=== PATIENT | male | born 1960 | race Caucasian/White ===

== ENCOUNTER 2018-11-19 18:21 | Inpatient (IN) | payer MEDICARE, OTHER ==
--- NOTE | 2018-11-19 20:25 | ED Physician Chart ---
ED Chief Complaint/HPI - Patient Information Date Seen:: 11/19/18 Time Seen:: 20:25 Chief Complaint:: Generalized weakness History of Present Illness:: 58 yo male with history of hypertension and psychosis, was brought from a [facility] facility for evaluation of generalized weakness and urinary incontinence. Patient was a SNF resident prior to living at the [facility] requiring assist with ADLs. Allergies:: Allergies Allergy/AdvReac Type Severity Reaction Status Date / Time No Known Allergies Allergy Verified 11/19/18 19:41 Vitals:: Vital Signs - 8 hr 11/19/18 19:25 Temp 97.8 F HR 67 RR 18 BP 122/74 O2 Sat % 99 ED Review of Systems - Review of Systems General/Constitutional: No fever, Weakness Skin: No rash Head: No headache Eyes: No pain ENT: No nasal drainage Neck: No neck pain Cardio Vascular: No chest pain Pulmonary: No SOB GI: No nausea, No vomiting Musculoskeletal: No bone or joint pain Psychiatric: Prior psych history Hematopoietic: No bruising Neurological: No syncope, Weakness ED Past Medical History - Past Medical History Past Medical History: HTN Social History: Non Smoker, No Alcohol, No Drug Use Psychiatricy History: Other (Psychosis) Family Medical History - Family Member Mother History Unknown: Yes Ethnicity: Unknown Living Status: Unknown Hx Family Cancer: No Hx Family Coronary Artery Disease: No Hx Family Congestive Heart Failure: No Hx Family Hypertension: No Hx Family Stroke: No Hx Family Diabetes: No Hx Family Seizures: No Hx Family Dementia: No Hx Family AIDS: No Hx Family HIV: No Hx Family COPD: No Hx Family Hepatitis: No Hx Family Psychiatric Problems: No Hx Family Tuberculosis: No ED Physical Exam - Physical Examination General/Constitutional: Awake Head: Atraumatic Eyes: PERRL, EOMI Skin: No ecchymosis ENMT: Nasal exam nl Neck: No nuchal rigidity Respiratory: Clear to Auscultation Cardio Vascular: RRR, No murmur, gallop, rubs, NL S1 S2 GI: No tenderness/rebounding/guarding Extremities: No tenderness or effusion, Full ROM, normal strength in all extremities, No edema, Normal digits & nails Other Neuro/Psych comments:: A & O to self and place ED Labs/Radiology/EKG Results - Lab Results Results: Laboratory Last Values WBC 6.2 Th/cmm (4.8-10.8) 11/20/18 05:45 RBC 3.76 Mil/cmm (4.30-5.70) L 11/20/18 05:45 Hgb 12.0 gm/dL (12-16) 11/20/18 05:45 Hct 35.3 % (41.0-60) L 11/20/18 05:45 MCV 94.0 fl (80-99) 11/20/18 05:45 MCH 31.9 pg (26.0-30.0) H 11/20/18 05:45 MCHC Differential 34.0 pg (28.0-36.0) 11/20/18 05:45 RDW 14.3 % (11.5-20.0) 11/20/18 05:45 Plt Count 167 Th/cmm (150-400) 11/20/18 05:45 MPV 7.9 fl 11/20/18 05:45 Add Manual Diff YES 11/20/18 05:45 Neutrophils % 40.4 % (40.0-80.0) 11/19/18 20:34 Band Neutrophils % 0 % (0-10) 11/20/18 05:45 Lymphocytes % 44.2 % (20.0-50.0) 11/19/18 20:34 Monocytes % 11.4 % (2.0-10.0) H 11/19/18 20:34 Eosinophils % 3.5 % (0.0-5.0) 11/19/18 20:34 Basophils % 0.5 % (0.0-2.0) 11/19/18 20:34 Neutrophils (Manual) 34 % (40-80) L 11/20/18 05:45 Lymphocytes 48 % (20-50) 11/20/18 05:45 Monocytes 10 % (2-10) 11/20/18 05:45 Eosinophils 3 % (0-5) 11/20/18 05:45 Basophils 0 % (0-3) 11/20/18 05:45 Atypical Lymphocytes 5 % 11/20/18 05:45 Sodium 143 mEq/L (136-145) 11/20/18 05:45 Potassium 3.6 mEq/L (3.5-5.1) 11/20/18 05:45 Chloride 110 mEq/L (98-107) H 11/20/18 05:45 Carbon Dioxide 28.6 mEq/L (21.0-31.0) 11/20/18 05:45 Anion Gap 8.0 (7.0-16.0) 11/20/18 05:45 BUN 16 mg/dL (7-25) 11/20/18 05:45 Creatinine 0.7 mg/dL (0.7-1.3) 11/20/18 05:45 Est GFR ( Amer) > 60.0 ml/min (>90) 11/20/18 05:45 Est GFR (Non-Af Amer) > 60.0 ml/min 11/20/18 05:45 BUN/Creatinine Ratio 22.9 11/20/18 05:45 Glucose 111 mg/dL (70-105) H 11/20/18 05:45 Calcium 8.6 mg/dL (8.6-10.3) 11/20/18 05:45 Total Bilirubin 0.3 mg/dL (0.3-1.0) 11/20/18 05:45 AST 14 U/L (13-39) 11/20/18 05:45 ALT 10 U/L (7-52) 11/20/18 05:45 Alkaline Phosphatase 57 U/L (34-104) 11/20/18 05:45 Troponin I 0.01 ng/mL (0.01-0.05) 11/19/18 20:34 B-Natriuretic Peptide 12.4 pg/mL (5.0-100.0) 11/19/18 20:34 Total Protein 5.2 gm/dL (6.0-8.3) L 11/20/18 05:45 Albumin 2.8 gm/dL (4.2-5.5) L 11/20/18 05:45 Globulin 2.4 gm/dL 11/20/18 05:45 Albumin/Globulin Ratio 1.2 (1.0-1.8) 11/20/18 05:45 Triglycerides 71 mg/dL (<150) 11/20/18 05:45 Cholesterol 89 mg/dL (<200) 11/20/18 05:45 LDL Cholesterol Direct 55 mg/dL (75-193) L 11/20/18 05:45 HDL Cholesterol 26 mg/dL (23-92) 11/20/18 05:45 TSH 4.62 uIU/ml (0.34-5.60) 11/20/18 05:45 - Radiology Results Results: CXR: no focal consolidation ED Assessment - Assessment General Assessment: Generalized weakness Psychosis Hypertension, controlled Assessment/Comments:: CBC, CMP, Trop, BNP, TSH UA, urine drug screen CXR, EKG ED Septic Shock - . Is Septic Shock (SBP<90, OR Lactate>4 mmol\L) present?: No - <6hrs of presentation: Vital Signs: Vital Signs - 8 hr 11/19/18 19:25 Temp 97.8 F HR 67 RR 18 BP 122/74 O2 Sat % 99 ED Reassessment (Disposition) - Reassessment Reassessment:: Patient requires further evaluation of generalized weakness and placement planning after discharge. Reassessment Condition:: Unchanged - Patient Disposition Discharge/Transfer:: Acute Care w/in this hosp Admitting Medical Physician:: Georgia Mott
[2018-11-19 20:56] LABS: % BASOPHILS 0.5 % (0.0-2.0); % EOSINOPHILS 3.5 % (0.0-5.0); % LYMPHOCYTES 44.2 % (20.0-50.0); % MONOCYTES 11.4 % (2.0-10.0); % NEUTROPHILS 40.4 % (40.0-80.0); EOSINOPHILE ABSOLUTE 0.3 Th/cmm (0.1-0.4); HEMATOCRIT 39.7 % (41.0-60); HEMOGLOBIN 13.2 gm/dL (12-16); LYMPHOCYTE ABSOLUTE 3.9 Th/cmm (1.5-3.0); MEAN CELL VOLUME 94.6 fl (80-99); MEAN CORPUSCULAR HEMOGLOBIN 31.5 pg (26.0-30.0); MEAN CORPUSCULAR HGB CONC 33.3 pg (28.0-36.0); MEAN PLATELET VOLUME 7.9 fl; NEUTROPHILE ABSOLUTE 3.5 Th/cmm (1.8-8.0); PLATELET COUNT 188 Th/cmm (150-400); RED CELL DISTRIBUTION WIDTH 14.2 % (11.5-20.0); WHITE BLOOD COUNT 8.7 Th/cmm (4.8-10.8)
[2018-11-19 21:13] LABS: ALB/GLOB RATIO 1.2 (1.0-1.8); ALBUMIN 3.4 gm/dL (4.2-5.5); ALKALINE PHOSPHATASE 76 U/L (34-104); ANION GAP 11.6 (7.0-16.0); BILIRUBIN,TOTAL 0.3 mg/dL (0.3-1.0); BUN - UREA NITROGEN 19 mg/dL (7-25); CALCIUM SERUM 8.9 mg/dL (8.6-10.3); CARBON DIOXIDE 25.2 mEq/L (21.0-31.0); CHLORIDE 107 mEq/L (98-107); CREATININE - SERUM 0.7 mg/dL (0.7-1.3); GFR AFRICAN-AMERICAN > 60.0 ml/min (>90); GFR NON AFRICAN-AMERICAN > 60.0 ml/min; GLUCOSE 136 mg/dL (70-105); POTASSIUM SERUM 3.8 mEq/L (3.5-5.1); SGOT 17 U/L (13-39); SGPT/ALT 13 U/L (7-52); SODIUM SERUM 140 mEq/L (136-145); TOTAL PROTEIN,SERUM 6.3 gm/dL (6.0-8.3)
[2018-11-19 23:35] VITALS: BP 116/67
[2018-11-19] MEDS ORDERED: Pneumococcal Vaccine 0.5 mL Vial IM ONE (23:51)
[2018-11-20] MEDS: D5-0.45NS 1,000 ML IV SCH ×2 (00:28→13:02)
[2018-11-20 06:48] LABS: HEMATOCRIT 35.3 % (41.0-60); MEAN CORPUSCULAR HEMOGLOBIN 31.9 pg (26.0-30.0); MEAN PLATELET VOLUME 7.9 fl; PLATELET COUNT 167 Th/cmm (150-400); RED BLOOD COUNT 3.76 Mil/cmm (4.30-5.70); RED CELL DISTRIBUTION WIDTH 14.3 % (11.5-20.0); WHITE BLOOD COUNT 6.2 Th/cmm (4.8-10.8)
[2018-11-20 07:15] LABS: ALB/GLOB RATIO 1.2 (1.0-1.8); ALBUMIN 2.8 gm/dL (4.2-5.5); ALKALINE PHOSPHATASE 57 U/L (34-104); BILIRUBIN,TOTAL 0.3 mg/dL (0.3-1.0); BUN - UREA NITROGEN 16 mg/dL (7-25); CALCIUM SERUM 8.6 mg/dL (8.6-10.3); CARBON DIOXIDE 28.6 mEq/L (21.0-31.0); CHLORIDE 110 mEq/L (98-107); CHOLESTEROL 89 mg/dL (<200); CREATININE - SERUM 0.7 mg/dL (0.7-1.3); GFR AFRICAN-AMERICAN > 60.0 ml/min (>90); GFR NON AFRICAN-AMERICAN > 60.0 ml/min; GLUCOSE 111 mg/dL (70-105); HDL -HIGH DENSITY LIPOPROTEIN 26 mg/dL (23-92); POTASSIUM SERUM 3.6 mEq/L (3.5-5.1); SGOT 14 U/L (13-39); SGPT/ALT 10 U/L (7-52); SODIUM SERUM 143 mEq/L (136-145); TOTAL PROTEIN,SERUM 5.2 gm/dL (6.0-8.3); TRIGLYCERIDES 71 mg/dL (<150)
[2018-11-20 07:19] LABS: ATYPICAL LYMPH 5 %; BAND NEUTROPHILE 0 % (0-10); BASOPHIL 0 % (0-3); EOSINOPHIL 3 % (0-5); LYMPHOCYTE 48 % (20-50); MONOCYTE 10 % (2-10); NEUTROPHILS 34 % (40-80)
--- NOTE | 2018-11-20 08:37 | Diagnostic Imaging Report ---
CHEST X-RAY: AP view INDICATION: Shortness of breath COMPARISON: None FINDINGS: Suboptimal lung volumes are seen with slight increased interstitial lung markings. There is no focal consolidation or pleural effusions The heart is normal in size. The osseous structures demonstrate no acute abnormalities. IMPRESSION: Suboptimal lung volume with slight increased nonspecific interstitial lung markings. No focal consolidation or evidence of katy CHF.
[2018-11-20 12:10] LABS: URINE SOURCE MIDSTREAM
[2018-11-20 12:19] LABS: URINE BILIRUBIN NEGATIVE (NEGATIVE); URINE BLOOD NEGATIVE (NEGATIVE); URINE GLUCOSE (UA) NEGATIVE (NEGATIVE); URINE KETONE NEGATIVE (NEGATIVE); URINE LEUKOCYTE ESTERASE NEGATIVE (NEGATIVE); URINE NITRATE NEGATIVE (NEGATIVE); URINE PROTEIN NEGATIVE (NEGATIVE); URINE UROBILINOGEN 0.2 E.U./dL (0.2 - 1.0)
[2018-11-20 12:22] LABS: URINE COLOR DARK YELLOW
[2018-11-20 12:28] LABS: AMPHETAMINE URINE NEGATIVE (NEGATIVE); BARBITURATES URINE NEGATIVE (NEGATIVE); BENZODIAZEPINES QUAL URINE NEGATIVE (NEGATIVE); CANNABINOID THC NEGATIVE (NEGATIVE); COCAINE METABOLITE QUAL URINE NEGATIVE (NEGATIVE); METHADONE URINE NEGATIVE (NEGATIVE); METHAMPHETAMINES QUAL URINE NEGATIVE (NEGATIVE); OPIATES (MORPHINE) QUAL. URINE NEGATIVE (NEGATIVE); PHENCYCLIDINE (PCP) URINE NEGATIVE (NEGATIVE); TRICYCLICS (TCA) QUAL. URINE NEGATIVE (NEGATIVE); URINE CLARITY CLEAR (CLEAR); URINE MICROSCOPIC INDICATED? NO
[2018-11-20] MEDS ORDERED: Promethazine DM 6.25/15mg-5mL 5 ML SYR PO PRN (15:29)
--- NOTE | 2018-11-20 22:12 | History & Physical ---
ADMIT DATE: 11/20/2018 HISTORY OF PRESENT ILLNESS: The patient actually came from [facility]. The patient has been having generalized weakness, urinary incontinence, and the patient has been significantly declining, requiring assistance with his ADLs. The patient known to have history of hypertension, history of psychosis, and the patient was seen in the Emergency Room, was admitted. His temperature 98.5, heart rate was 67, and respiratory rate was 18. REVIEW OF SYSTEMS: Difficult to obtain. The patient has no fever, no chills, no rigors. Chief complain is again a history of generalized weakness. PAST MEDICAL HISTORY: History of hypertension. PHYSICAL EXAMINATION: HEAD: Normal. ENT: Normal. NECK: Supple and nontender. LUNGS: Clear. CARDIOVASCULAR SYSTEM: S1, S2 heard. ABDOMEN: Soft. Bowel sounds are heard. CENTRAL NERVOUS SYSTEM: Slightly confused. DIAGNOSTIC DATA: Chest x-ray showed no consolidation. DIAGNOSES: Generalized weakness, malnutrition, psychosis, decreasing in ADL, history of hypertension was made. PLAN: The patient was admitted. I will follow the patient and we will do a workup including reason for severe significant malnutrition and also we will [facility] the patient [facility] since his declining is very significant. JOB# [id number]
[2018-11-21] MEDS: D5-0.45NS 1,000 ML IV SCH ×2 (05:10→15:33)
[2018-11-21 07:23] LABS: % BASOPHILS 0.9 % (0.0-2.0); % EOSINOPHILS 3.4 % (0.0-5.0); % LYMPHOCYTES 41.6 % (20.0-50.0); % MONOCYTES 14.3 % (2.0-10.0); % NEUTROPHILS 39.8 % (40.0-80.0); BASOPHILE ABSOLUTE 0.1 Th/cumm (0-0.2); EOSINOPHILE ABSOLUTE 0.2 Th/cmm (0.1-0.4); HEMATOCRIT 39.8 % (41.0-60); HEMOGLOBIN 13.3 gm/dL (12-16); LYMPHOCYTE ABSOLUTE 3.1 Th/cmm (1.5-3.0); MEAN CELL VOLUME 94.5 fl (80-99); MEAN CORPUSCULAR HEMOGLOBIN 31.5 pg (26.0-30.0); MEAN CORPUSCULAR HGB CONC 33.3 pg (28.0-36.0); MEAN PLATELET VOLUME 7.9 fl; NEUTROPHILE ABSOLUTE 2.9 Th/cmm (1.8-8.0); PLATELET COUNT 177 Th/cmm (150-400); RED BLOOD COUNT 4.21 Mil/cmm (4.30-5.70); RED CELL DISTRIBUTION WIDTH 14.1 % (11.5-20.0); WHITE BLOOD COUNT 7.3 Th/cmm (4.8-10.8)
[2018-11-21 07:35] LABS: ANION GAP 8.3 (7.0-16.0); BUN - UREA NITROGEN 12 mg/dL (7-25); CALCIUM SERUM 9.1 mg/dL (8.6-10.3); CARBON DIOXIDE 29.9 mEq/L (21.0-31.0); CHLORIDE 109 mEq/L (98-107); CREATININE - SERUM 0.7 mg/dL (0.7-1.3); GFR AFRICAN-AMERICAN > 60.0 ml/min (>90); GFR NON AFRICAN-AMERICAN > 60.0 ml/min; GLUCOSE 87 mg/dL (70-105); POTASSIUM SERUM 4.2 mEq/L (3.5-5.1); SODIUM SERUM 143 mEq/L (136-145)
--- NOTE | 2018-11-21 15:50 | Internal Medicine Prog Note ---
Internal Medicine Subjective - Subjective Patient seen and examined:: chart reviewed Patient is:: awake, verbal, talking, other (weak) Patient Complaints of:: other (weakness,urinary incontinance) Per staff patient has:: no adverse event Internal Medicine Objective - Results Result Diagrams: 11/21/18 06:36 11/21/18 06:36 Recent Labs: Laboratory Last Values WBC 7.3 Th/cmm (4.8-10.8) 11/21/18 06:36 RBC 4.21 Mil/cmm (4.30-5.70) L 11/21/18 06:36 Hgb 13.3 gm/dL (12-16) 11/21/18 06:36 Hct 39.8 % (41.0-60) L 11/21/18 06:36 MCV 94.5 fl (80-99) 11/21/18 06:36 MCH 31.5 pg (26.0-30.0) H 11/21/18 06:36 MCHC Differential 33.3 pg (28.0-36.0) 11/21/18 06:36 RDW 14.1 % (11.5-20.0) 11/21/18 06:36 Plt Count 177 Th/cmm (150-400) 11/21/18 06:36 MPV 7.9 fl 11/21/18 06:36 Add Manual Diff YES 11/20/18 05:45 Neutrophils % 39.8 % (40.0-80.0) L 11/21/18 06:36 Band Neutrophils % 0 % (0-10) 11/20/18 05:45 Lymphocytes % 41.6 % (20.0-50.0) 11/21/18 06:36 Monocytes % 14.3 % (2.0-10.0) H 11/21/18 06:36 Eosinophils % 3.4 % (0.0-5.0) 11/21/18 06:36 Basophils % 0.9 % (0.0-2.0) 11/21/18 06:36 Neutrophils (Manual) 34 % (40-80) L 11/20/18 05:45 Lymphocytes 48 % (20-50) 11/20/18 05:45 Monocytes 10 % (2-10) 11/20/18 05:45 Eosinophils 3 % (0-5) 11/20/18 05:45 Basophils 0 % (0-3) 11/20/18 05:45 Atypical Lymphocytes 5 % 11/20/18 05:45 Sodium 143 mEq/L (136-145) 11/21/18 06:36 Potassium 4.2 mEq/L (3.5-5.1) 11/21/18 06:36 Chloride 109 mEq/L (98-107) H 11/21/18 06:36 Carbon Dioxide 29.9 mEq/L (21.0-31.0) 11/21/18 06:36 Anion Gap 8.3 (7.0-16.0) 11/21/18 06:36 BUN 12 mg/dL (7-25) 11/21/18 06:36 Creatinine 0.7 mg/dL (0.7-1.3) 11/21/18 06:36 Est GFR ( Amer) > 60.0 ml/min (>90) 11/21/18 06:36 Est GFR (Non-Af Amer) > 60.0 ml/min 11/21/18 06:36 BUN/Creatinine Ratio 17.1 11/21/18 06:36 Glucose 87 mg/dL (70-105) 11/21/18 06:36 Calcium 9.1 mg/dL (8.6-10.3) 11/21/18 06:36 Total Bilirubin 0.3 mg/dL (0.3-1.0) 11/20/18 05:45 AST 14 U/L (13-39) 11/20/18 05:45 ALT 10 U/L (7-52) 11/20/18 05:45 Alkaline Phosphatase 57 U/L (34-104) 11/20/18 05:45 Troponin I 0.01 ng/mL (0.01-0.05) 11/19/18 20:34 B-Natriuretic Peptide 12.4 pg/mL (5.0-100.0) 11/19/18 20:34 Total Protein 5.2 gm/dL (6.0-8.3) L 11/20/18 05:45 Albumin 2.8 gm/dL (4.2-5.5) L 11/20/18 05:45 Globulin 2.4 gm/dL 11/20/18 05:45 Albumin/Globulin Ratio 1.2 (1.0-1.8) 11/20/18 05:45 Triglycerides 71 mg/dL (<150) 11/20/18 05:45 Cholesterol 89 mg/dL (<200) 11/20/18 05:45 LDL Cholesterol Direct 55 mg/dL (75-193) L 11/20/18 05:45 HDL Cholesterol 26 mg/dL (23-92) 11/20/18 05:45 TSH 4.62 uIU/ml (0.34-5.60) 11/20/18 05:45 Urine Source MIDSTREAM 11/20/18 09:45 Urine Color DARK YELLOW 11/20/18 09:45 Urine Clarity CLEAR (CLEAR) 11/20/18 09:45 Urine pH 6.0 (4.6 - 8.0) 11/20/18 09:45 Ur Specific [place] >= 1.030 (1.005-1.030) 11/20/18 09:45 Urine Protein NEGATIVE mg/dL (NEGATIVE) 11/20/18 09:45 Urine Glucose (UA) NEGATIVE mg/dL (NEGATIVE) 11/20/18 09:45 Urine Ketones NEGATIVE mg/dL (NEGATIVE) 11/20/18 09:45 Urine Blood NEGATIVE (NEGATIVE) 11/20/18 09:45 Urine Nitrate NEGATIVE (NEGATIVE) 11/20/18 09:45 Urine Bilirubin NEGATIVE (NEGATIVE) 11/20/18 09:45 Urine Urobilinogen 0.2 E.U./dL (0.2 - 1.0) 11/20/18 09:45 Ur Leukocyte Esterase NEGATIVE (NEGATIVE) 11/20/18 09:45 Urine Opiates Screen NEGATIVE (NEGATIVE) 11/20/18 09:45 Urine Methadone Screen NEGATIVE (NEGATIVE) 11/20/18 09:45 Ur Barbiturates Screen NEGATIVE (NEGATIVE) 11/20/18 09:45 Ur Tricyclics Screen NEGATIVE (NEGATIVE) 11/20/18 09:45 Ur Phencyclidine Scrn NEGATIVE (NEGATIVE) 11/20/18 09:45 Amphetamines Screen NEGATIVE (NEGATIVE) 11/20/18 09:45 U Methamphetamines Scrn NEGATIVE (NEGATIVE) 11/20/18 09:45 U Benzodiazepines Scrn NEGATIVE (NEGATIVE) 11/20/18 09:45 U Cocaine Metab Screen NEGATIVE (NEGATIVE) 11/20/18 09:45 U Cannabinoids Screen NEGATIVE (NEGATIVE) 11/20/18 09:45 - Physical Exam Vitals and I&O: Vital Signs Temp 97.7 F 11/21/18 15:40 Pulse 80 11/21/18 15:40 Resp 18 11/21/18 15:40 BP 119/58 11/21/18 15:40 Pulse Ox 98 11/21/18 15:40 Intake & Output 11/20/18 11/21/18 11/21/18 18:59 06:59 18:59 Intake Total 1000 1000 1000 Balance 1000 1000 1000 Intake: Intake, IV Amount 1000 1000 1000 D5-0.45NS 1,000 ml @ 100 1000 1000 1000 mls/hr IV .Q10H MANJINDER Rx#: [id number] Other: Stool Characteristics Soft Soft Soft Active Medications: Current Medications Aripiprazole (Abilify) 10 mg PO HS MANJINDER; Protocol Stop: 01/20/19 20:59 Dextrose/Sodium Chloride (D5-0.45ns) 1,000 mls @ 100 mls/hr IV .Q10H MANJINDER Stop: 01/18/19 22:44 Last Admin: 11/21/18 15:33 Dose: 100 mls/hr Promethazine HCl/Dextromethorphan (Phenergan Dm 6.25/15mg-5 Ml) 10 ml PO TID PRN PRN Reason: Cough Stop: 01/19/19 15:28 General: weak, other (confused ) HEENT: NC/AT Neck: Supple Lungs: CTAB Cardiovascular: RRR, Normal S1, Normal S2 Abdomen: soft, non-tender Extremities: clear Neurological: no change - Procedures Procedures: Procedures Procedure Code Date INDIVID PSYCHOTHERAP NEC 94.39 10/25/04 OTHER GROUP THERAPY 94.44 10/25/04 RECREATIONAL THERAPY 93.81 10/25/04 Internal Medicine Assmt/Plan - Assessment Assessment: generalized weakness malnutrition psychosis decrease in ADL h/o htn - Plan Plan: as per order sheet Nutritional Asmnt/Malnutr-PDOC - Dietary Evaluation Malnutrition Findings (Please click <Entered> for more info): Nutritional Asmnt/Malnutrition Start: 11/20/18 14: 58 Text: Status: Complete Freq: Protocol: Document 11/20/18 14:59 [email or web address] (Rec: 11/20/18 15:14 [email or web address] ALIE) Nutritional Asmnt/Malnutrition Patient General Information Nutritional Screening High Risk Diagnosis general weakness, failure to thrive Pertinent Medical Hx/Surgical Hx HTN, psychosis Subjective Information Pt was resting in bed at time of visit, had no concerns about food. PO intake 100% at lunch, but pt needs assistance due to shaking per PUBLICATIONS SALES REPRESENTATIVE. Current Diet Order/ Nutrition Support low sodium 2gm Pertinent Medications d5-0.45ns Pertinent Labs 11/20 Cl 110, glucose 111, alb 2.8 Nutritional Hx/Data Height 1.73 m Height (Calculated Centimeters) 172.7 Current Weight (lbs) 96.162 kg Weight (Calculated Kilograms) 96.2 Weight (Calculated Grams) 85425.6 [place] Body Weight 154 Body Mass Index (BMI) 32.2 Weight Status Obese GI Symptoms GI Symptoms None Last BM not indicated Difficult in: None Food Allergies No Skin Integrity/Comment: salomon pan 19 Estimated Nutritional Goals BEE in Kcals: Adj wt of IBW Calories/Kcals/Kg 27-32 Kcals Calculated [id number] Protein: Adj wt of IBW Protein g/k Protein Calculated 76 Fluid: ml [id number] (1ml/kcal) Nutritional Problem No current Nutrition Prob Problem no nutrition diagnosis at this time Malnutrition Alert Is there a minimum of two criteria No selected? Query Text:Check all the applicable criteria. A minimum of two criteria are recommended for diagnosis of either severe or non-severe malnutrition. Malnutrition Related to Morbid Obesity Malnutrition related to morbid obesity No Intervention/Recommendation Comments 1. Continue with low sodium 2gm diet as ordered. 2. Monitor PO intake, wt, labs and skin integrity 3. F/U as moderate risk in 3-5 days, PO check 11/22 Expected Outcomes/Goals Expected Outcomes/Goals 1. PO intake to meet at least 75% of nutritional needs. 2. Wt stability, skin to remain intact, labs to approach WNL. Revewed by Vera Hernandez RD
[2018-11-21] MEDS ORDERED: Benztropine 1 MG TAB PO SCH (22:00)
--- NOTE | 2018-11-21 23:33 | Consultation ---
DATE OF CONSULTATION: 11/21/2018 INFECTIOUS DISEASE CONSULTATION REFERRING PHYSICIAN: Jered Ch MD REASON FOR CONSULTATION: Tremors. HISTORY OF PRESENT ILLNESS: The patient is a 58-year-old male with a past medical history of hypertension and psychiatric disease, developed generalized weakness, urinary incontinence. The patient developed severe tremor and twitching of lips. ID consult was called for further evaluation. PAST MEDICAL HISTORY: Hypertension, psychosis. ALLERGIES: NKDA. MEDICATIONS: As per medication reconciliation sheet. REVIEW OF SYSTEMS: GENERAL: The patient has no fever, no chills. The patient has developed some tremors recently. HEENT: No diplopia, no photophobia. No sore throat. RESPIRATORY: No cough, no shortness of breath. CARDIOVASCULAR: No chest pain or palpitation. GASTROINTESTINAL: No nausea, no vomiting, no diarrhea, no constipation. GENITOURINARY: No dysuria. NEUROLOGICAL: Alert, awake, oriented x 3. The patient has significant dystonic movement of the left upper extremity and somewhat of right upper extremity. The patient had involuntary twitching movement of lips, as well as face. LABORATORY DATA: Current lab shows WBC count is 7,300, hemoglobin 13.3, hematocrit 39.8, platelets are 177,000. Neutrophil is 39.8%. Sodium 143, potassium 4.2, chloride 109, bicarbonate is 29.9, BUN is 12, creatinine 0.7, glucose is 87. Urinalysis negative nitrite, negative leukoesterase. IMPRESSION: 1. Dystonic movement of upper extremities, worse on the left side. 2. Tremors to lower face and lips, consider whether tardive dyskinesia. 3. Psychosis. 4. Hypertension. RECOMMENDATIONS: May consider psych consultation for medication and dystonia and tardive dyskinesia. Thank you, Dr. Ch for involving me in taking care of this patient. JOB# [id number] MTDD
--- NOTE | 2018-11-22 01:50 | History & Physical ---
ADMIT DATE: 11/21/2018 SEX: Male. PHYSICIAN: Dr. Ch. NATURAL FABRICATOR: Dr. Riley. CHIEF COMPLAINT: Generalized weakness and depression. HISTORY OF PRESENT ILLNESS: The patient is a 58-year-old male who was admitted to the hospital because of generalized weakness and also has been having poor ADLs. The patient has history of schizophrenia and also has history of hypertension. The patient said that he has been depressed and he also has been feeling weak. Also seems to be slightly suspicious and is paranoid. The patient denies any thoughts of suicide or intention for self-harm. PAST PSYCHIATRIC HISTORY: The patient has a history of schizophrenia and a history of inpatient treatment, but the patient was not able to elaborate on where at this time. The patient also could not remember the name of the medications he was taking for his psychosis. PAST MEDICAL HISTORY: The patient was admitted because of generalized weakness. SOCIAL HISTORY: The patient is single, never and has no children. He lives in [facility]. He denies any alcohol or any street drug use. ALLERGIES: No known allergies. MENTAL STATUS EXAM: The patient appears slightly older than his stated age. Anxious. Flat affect. In a depressed mood. Cooperative. Thought processes are mainly goal directed, but he seems to be slightly preoccupied. The patient denies auditory or visual hallucinations at this time. He denies any thoughts of suicide or homicide. The patient is alert and oriented to time, place, person, and situation. Intact immediate, recent and remote memories. Fair insight and fair judgment. Seems to be of average intelligence based on his verbal ability. ASSESSMENT: PRIMARY DIAGNOSIS: Chronic paranoid schizophrenia with acute exacerbation. TREATMENT PLAN: We will monitor his behavior. We will start the patient on Abilify and we will adjust the dose. We will work on our supportive therapy. Thanks to Dr. Ch and we will follow up with you. JOB# [id number]
[2018-11-22] MEDS: D5-0.45NS 1,000 ML IV SCH (04:20)
[2018-11-22 06:02] LABS: HEMATOCRIT 38.3 % (41.0-60); HEMOGLOBIN 13.1 gm/dL (12-16); MEAN CELL VOLUME 92.5 fl (80-99); MEAN CORPUSCULAR HEMOGLOBIN 31.6 pg (26.0-30.0); MEAN CORPUSCULAR HGB CONC 34.2 pg (28.0-36.0); MEAN PLATELET VOLUME 7.6 fl; PLATELET COUNT 178 Th/cmm (150-400); RED BLOOD COUNT 4.14 Mil/cmm (4.30-5.70); RED CELL DISTRIBUTION WIDTH 13.9 % (11.5-20.0); WHITE BLOOD COUNT 7.7 Th/cmm (4.8-10.8)
[2018-11-22 06:15] LABS: ANION GAP 9.1 (7.0-16.0); BUN - UREA NITROGEN 14 mg/dL (7-25); CALCIUM SERUM 8.8 mg/dL (8.6-10.3); CHLORIDE 108 mEq/L (98-107); CREATININE - SERUM 0.7 mg/dL (0.7-1.3); GFR AFRICAN-AMERICAN > 60.0 ml/min (>90); GFR NON AFRICAN-AMERICAN > 60.0 ml/min; GLUCOSE 91 mg/dL (70-105); POTASSIUM SERUM 4.1 mEq/L (3.5-5.1); SODIUM SERUM 142 mEq/L (136-145)
[2018-11-22 07:13] LABS: ACANTHROCYTES 1+; ANISOCYTOSIS 1+; BAND NEUTROPHILE 7 % (0-10); BASOPHIL 0 % (0-3); EOSINOPHIL 4 % (0-5); LYMPHOCYTE 44 % (20-50); MONOCYTE 10 % (2-10); NEUTROPHILS 35 % (40-80); POIKILOCYTOSIS 1+
[2018-11-22] MEDS ORDERED: Benztropine 1 MG TAB PO SCH (09:00)
[2018-11-22] MEDS ORDERED: Non-Formulary Item 1 EA (Non-Formulary Item [Non-Formulary Item] 1 EA) MC SCH (09:00)
[2018-11-22] MEDS ORDERED: Aspirin 81mg Chewable Tab PO SCH (09:00)
== END 2018-11-22 13:35 | DRG 70 ==
LOC: ER 18:21 → MSI 22:20
PROVIDERS: ADMIT Internal Medicine; ATTEND Internal Medicine
DX: G93.40 Encephalopathy, unspecified (principal); E41 Nutritional marasmus; F20.0 Paranoid schizophrenia; F29 Unspecified psychosis not due to a substance or known physiological condition; I10 Essential (primary) hypertension; R32 Unspecified urinary incontinence; Z68.31 Body mass index [BMI] 31.0-31.9, adult; R25.8 Other abnormal involuntary movements; R53.81 Other malaise
CPT/HCPCS: 36415-UA; 71045-TC; 80048-TC; 80053-TC; 80061-TC; 80307; 81003-TC; 83880-TC; 84443-TC; 84484-TC; 85007-TC; 85025-TC; 93005; 97530; X3904; Z7610